=== PATIENT | female | born 1960 | race Caucasian/White ===

== ENCOUNTER → 2017-03-21 | Emergency (ER) | payer SELFPAY ==
[~2017-03-21] MED LIST: ASPIRIN 325 MG TABLET PO ONE; ASPIRIN 325 MG TABLET, ENT COATED PO SCH; ASPIRIN 81 MG TABLET, CHEWABLE ONE; ATORVASTATIN CALCIUM 40 MG TABLET PO SCH; DIAZEPAM 5 MG TABLET PO PRN; ENOXAPARIN SODIUM INJ 150 MG/1 ML DISP.SYRIN SUBCUT SCH; MAG HYDROX/AL HYDROX/SIMETH SUSP 30 ML UDCUP PO PRN; MORPHINE SULFATE 10 MG/ML INJ IV PRN; NITROGLYCERIN 0.4 MG/TAB 25 TAB/BOTTLE SL PRN; NITROGLYCERIN 2% OINTMENT 1 GM PACKET ONE; ONDANSETRON 4 MG TAB.RAPDIS PO PRN
--- NOTE | 2017-03-21 20:28 | ER Document Report ---
ED Medical Screen (RME) - General Chief Complaint: Chest Pain Stated Complaint: CHEST PAIN Time Seen by Provider: 03/21/17 20:27 Notes: Patient reports several days of chest pain abdominal pain and low back pain. TRAVEL OUTSIDE OF THE [place] IN LAST 30 DAYS: No Past Medical History - Social History Chew tobacco use (# tins/day): No Frequency of alcohol use: None Drug Abuse: None - Past Medical History Cardiac Medical History: Reports: Hx Hypertension Renal/ Medical History: Reports: Hx Kidney Stones. Denies: Hx Peritoneal Dialysis Past Surgical History: Reports: Hx Cardiac Catheterization Physical Exam - Vital signs Vitals: Temp Pulse Resp BP Pulse Ox 98.4 F 91 14 131/91 H 97 03/21/17 19:40 03/21/17 19:40 03/21/17 19:40 03/21/17 19:40 03/21/17 19:40 Course - Vital Signs Vital signs: Temp Pulse Resp BP Pulse Ox 98.4 F 91 14 131/91 H 97 03/21/17 19:40 03/21/17 19:40 03/21/17 19:40 03/21/17 19:40 03/21/17 19:40
--- NOTE | 2017-03-21 20:54 | RADIOLOGY REPORT (SQ) ---
EXAM DESCRIPTION: CHEST PA/LAT COMPLETED DATE/TIME: 03/21/2017 8:40 pm REASON FOR STUDY: cp COMPARISON: None. EXAM PARAMETERS: NUMBER OF VIEWS: two views TECHNIQUE: Digital Frontal and Lateral radiographic views of the chest acquired. RADIATION DOSE: NA LIMITATIONS: none FINDINGS: LUNGS AND PLEURA: No opacities, masses or pneumothorax. No pleural effusion. MEDIASTINUM AND HILAR STRUCTURES: No masses or contour abnormalities. HEART AND VASCULAR STRUCTURES: Heart normal size. No evidence for failure. BONES: No acute findings. HARDWARE: None in the chest. OTHER: No other significant finding. IMPRESSION: NO SIGNIFICANT RADIOGRAPHIC FINDING IN THE CHEST. TECHNICAL DOCUMENTATION: JOB ID: [id number] [employer]- All Rights Reserved
[2017-03-21 21:17] LABS: APPEARANCE,URINE SLIGHTLY-CLOUDY; BILIRUBIN,URINE NEGATIVE (NEGATIVE); COLOR,URINE YELLOW; GLUCOSE, URINE NEGATIVE (NEGATIVE); KETONES,URINE NEGATIVE (NEGATIVE); LEUKOCYTE ESTERASE,URINE TRACE (NEGATIVE); NITRITE,URINE NEGATIVE (NEGATIVE); PROTEIN,URINE NEGATIVE (NEGATIVE)
--- NOTE | 2017-03-21 23:02 | ER Document Report ---
ED General <CASTRO,BRIAN - Last Filed: 03/22/17 02:15> - General TRAVEL OUTSIDE OF THE [place].S[place] IN LAST 30 DAYS: No - HPI Patient complains to provider of: Chest heaviness Onset: Other - 3 Days ago Quality of pain: Pressure Severity: Moderate Associated symptoms: Shortness of breath Similar symptoms previously: No Recently seen / treated by doctor: No <PO HENRIQUEZ - Last Filed: 03/22/17 15:06> - General Chief Complaint: Chest Pain Stated Complaint: CHEST PAIN Time Seen by Provider: 03/21/17 20:27 - HPI Notes: 86-year-old female presents emergency department stating she has had 3 days of heavy centralized chest pain that is worse when she walks her 2 dogs. She states she moved from [place] to here in October and she has not been out of her meds since at least November. She tried to get some of them filled but she simply cannot afford them and she has no insurance. She states she did have a cardiac cath a few months ago and was told that she did have 2 blockages at approximately 55%. (PO HENRIQUEZ) - Related Data Allergies/Adverse Reactions: No Known Allergies Allergy (Unverified 03/21/17 21:00) Home Medications: Current Home Medications Cyclobenzaprine HCl [Flexeril 10 mg Tablet] 10 mg PO TIDP PRN 03/22/17 [History] Hydrochlorothiazide 25 mg PO DAILY 03/22/17 [History] Metoprolol Succinate 25 mg PO DAILY 03/22/17 [History] Pravastatin Sodium 20 mg PO DAILY 03/22/17 [History] Past Medical History - General Information source: Patient, Relative - Patient's daughter - Social History Smoking Status: Current Every Day Smoker Chew tobacco use (# tins/day): No Frequency of alcohol use: None Drug Abuse: None Lives with: Family Family History: CAD, Hypertension Patient has suicidal ideation: No Patient has homicidal ideation: No - Past Medical History Cardiac Medical History: Reports: Hx Hypertension Pulmonary Medical History: Reports: None Neurological Medical History: Reports: None Endocrine Medical History: Reports: None Renal/ Medical History: Reports: Hx Kidney Stones. Denies: Hx Peritoneal Dialysis Malignancy Medical History: Reports: None GI Medical History: Reports: None Musculoskeltal Medical History: Reports None Skin Medical History: Reports None Psychiatric Medical History: Reports: None Traumatic Medical History: Reports: None Infectious Medical History: Reports: None Past Surgical History: Reports: Hx Cardiac Catheterization - Immunizations Immunizations up to date: No <YARITZA HENRIQUEZRILETITIAE E - Last Filed: 03/22/17 15:06> Review of Systems - Review of Systems Constitutional: No symptoms reported EENT: No symptoms reported Cardiovascular: See HPI Respiratory: No symptoms reported Gastrointestinal: No symptoms reported Genitourinary: Dysuria Female Genitourinary: No symptoms reported Musculoskeletal: Back pain - Low back pain right side more than left Skin: No symptoms reported Hematologic/Lymphatic: No symptoms reported Neurological/Psychological: No symptoms reported <YARITZA HENRIQUEZRILENE E - Last Filed: 03/22/17 15:06> Physical Exam <ETTA CASTRO - Last Filed: 03/22/17 02:15> <MEG HENRIQUEZE E - Last Filed: 03/22/17 15:06> - Vital signs Vitals: Temp Pulse Resp BP Pulse Ox 98.4 F 91 14 131/91 H 97 03/21/17 19:40 03/21/17 19:40 03/21/17 19:40 03/21/17 19:40 03/21/17 19:40 - Notes Notes: PHYSICAL EXAMINATION: GENERAL: Well-appearing, well-nourished, obese and in no acute distress. HEAD: Atraumatic, normocephalic. EYES: Pupils equal round and reactive to light, extraocular movements intact, conjunctiva are normal. ENT: Nares patent, oropharynx clear without exudates. Moist mucous membranes. NECK: Normal range of motion, supple without lymphadenopathy LUNGS: Breath sounds clear to auscultation bilaterally and equal. No wheezes rales or rhonchi. HEART: Regular rate and rhythm without murmurs ABDOMEN: Soft, nontender, nondistended abdomen. No guarding, no rebound. No masses appreciated. Female : deferred Musculoskeletal: Normal range of motion, no pitting or edema. No cyanosis. NEUROLOGICAL: Cranial nerves grossly intact. Normal speech, normal gait. Normal sensory, motor exams PSYCH: Normal mood, normal affect. SKIN: Warm, Dry, normal turgor, no rashes or lesions noted. (SINAPIKERRILENE E) Course - Laboratory Result Diagrams: 03/21/17 23:26 03/21/17 23:26 <ETTA CASTRO - Last Filed: 03/22/17 02:15> - Laboratory Result Diagrams: 03/21/17 23:26 03/21/17 23:26 - Diagnostic Test Radiology reviewed: Image reviewed, Reports reviewed - EKG Interpretation by Fl EKG shows normal: Sinus rhythm - 88 Rate: Normal When compared to previous EKG there are: Previous EKG unavailable <PO HENRIQUEZ - Last Filed: 03/22/17 15:06> - Re-evaluation Re-evalutation: 03/22/17 01:46 Patient's troponin is negative. I did reevaluate the patient and she is not having chest pain. I will contact Dr. García for admission. (ETTA CASTRO) 03/21/17 23:52 I did talk to the patient she is willing to stay for observation as needed. I also talked to Dr. García pending a negative troponin she will admit the patient to observation (PO HENRIQUEZ) - Vital Signs Vital signs: Temp Pulse Resp BP Pulse Ox 98.4 F 91 14 145/95 H 99 03/21/17 19:40 03/21/17 19:40 03/22/17 04:00 03/22/17 04:00 03/22/17 04:00 - Laboratory Laboratory results interpreted by va: 03/21/17 03/21/17 20:50 23:26 RBC 5.67 H Hgb 16.7 H Hct 47.1 H Lymphocytes % 45.3 H Urine Urobilinogen 2.0 H Ur Leukocyte Esterase TRACE H - Diagnostic Test Radiology results interpreted by va: 03/21/17 22:59 Chest x-ray without any acute findings (PO HENRIQUEZ) Discharge - Discharge Admitting Provider: Hospitalist <ETTA CASTRO - Last Filed: 03/22/17 02:15> - Discharge Admitting Provider: Hospitalist Mehul garcía <PO HENRIQUEZ - Last Filed: 03/22/17 15:06> - Discharge Clinical Impression: Chest pain Qualifiers: Chest pain type: unspecified Qualified Code(s): R07.9 - Chest pain, unspecified Condition: Stable Disposition: ADMITTED OBSERVATION
[2017-03-21 23:42] LABS: ABSOLUTE BASOPHILS # (AUTO) 0.1 10^3/uL (0.0-0.2); ABSOLUTE EOSINOPHILS # (AUTO) 0.2 10^3/uL (0.0-0.6); ABSOLUTE LYMPHOCYTES (AUTO) 4.2 10^3/uL (0.5-4.7); ABSOLUTE MONOCYTES (AUTO) 0.6 10^3/uL (0.1-1.4); ABSOLUTE NEUT (AUTO) 4.1 10^3/uL (1.7-8.2); BASOPHILS % (AUTO) 1.2 % (0-2); EOSINOPHILS % (AUTO) 2.1 % (0-6); HEMATOCRIT 47.1 % (36.0-47.0); HEMOGLOBIN 16.7 g/dL (12.0-15.5); LYMPHOCYTES % (AUTO) 45.3 % (13-45); MEAN CORPUSCULAR HEMOGLOBIN 29.4 pg (27.0-33.4); MEAN CORPUSCULAR HGB CONC 35.3 g/dL (32.0-36.0); MEAN CORPUSCULAR VOLUME 83 fl (80-97); MONOCYTES % (AUTO) 6.7 % (3-13); PLATELET COUNT 293 10^3/uL (150-450); RED BLOOD COUNT 5.67 10^6/uL (3.72-5.28); RED CELL DISTRIBUTION WIDTH 13.2 % (11.5-14.0); SEGMENTED NEUTROPHILS % (AUTO) 44.7 % (42-78); TOTAL CELLS COUNTED % (AUTO) 100 %; WHITE BLOOD COUNT 9.2 10^3/uL (4.0-10.5)
[2017-03-21 23:56] LABS: ALANINE AMINOTRANSFERASE 23 U/L (9-52); ALBUMIN 4.5 g/dL (3.5-5.0); ALKALINE PHOSPHATASE 98 U/L (38-126); ANION GAP 11 (5-19); ASPARTATE AMINO TRANSFERASE 19 U/L (14-36); BILIRUBIN,DIRECT 0.3 mg/dL (0.0-0.4); BILIRUBIN,TOTAL 0.3 mg/dL (0.2-1.3); BLOOD UREA NITROGEN 20 mg/dL (7-20); CALCIUM 10.2 mg/dL (8.4-10.2); CARBON DIOXIDE 24 mmol/L (22-30); CHLORIDE 104 mmol/L (98-107); GLUCOSE 108 mg/dL (75-110); POTASSIUM 4.5 mmol/L (3.6-5.0); SODIUM 138.6 mmol/L (137-145); TOTAL PROTEIN 7.3 g/dL (6.3-8.2)
[2017-03-22 04:30] VITALS: BP 145/95
--- NOTE | 2017-03-22 06:39 | H&P/Discharge Summary ---
Discharge Summary Admission Date/PCP: 03/22/17 02:31 Discharge Date: 03/22/17 Resuscitation Status: Full Code - Discharge Diagnosis (1) Left against medical advice Is this a current diagnosis for this admission?: Yes (2) Chest pain Is this a current diagnosis for this admission?: Yes (3) Morbid obesity Is this a current diagnosis for this admission?: Yes (4) Tobacco abuse Is this a current diagnosis for this admission?: Yes (5) Noncompliance by refusing service Is this a current diagnosis for this admission?: Yes (6) Noncompliance w/medication treatment due to intermit use of medication Is this a current diagnosis for this admission?: Yes Home Medications: Cyclobenzaprine HCl [Flexeril 10 mg Tablet] 10 mg PO TIDP PRN 03/22/17 Hydrochlorothiazide 25 mg PO DAILY 03/22/17 Metoprolol Succinate 25 mg PO DAILY 03/22/17 Pravastatin Sodium 20 mg PO DAILY 03/22/17 Allergies/Adverse Reactions: No Known Allergies Allergy (Unverified 03/21/17 21:00) History of Present Illness Admission Date/PCP: 03/22/17 02:31 History of Present Illness: ILA ARIZA is a 56 year old female with past medical history of hypertension, hyperlipidemia and reported history of cardiac catheterization with reported "clogged arteries". Who presented to the emergency department with 4 days of chest heaviness. She reports that this started when she was walking. She reports it has been constant for the last 4 days. She reports is worse with movement and slightly improved with rest although it is never completely gone away. She was referred to the hospitalist service for admission and subsequently patient elected to leave AGAINST MEDICAL ADVICE prior to being admitted and evaluated. She was not given any medications and no follow-up appointments were made for this patient. Past Medical History Cardiac Medical History: Reports: Hypertension Pulmonary Medical History: Reports: None Neurological Medical History: Reports: None Endocrine Medical History: Reports: None Malignancy Medical History: Reports: None GI Medical History: Reports: None Musculoskeltal Medical History: Reports: None Skin Medical History: Reports: None Psychiatric Medical History: Reports: None Traumatic Medical History: Reports: None Infectious Medical History: Reports: None Past Surgical History Past Surgical History: Reports: Cardiac Catheterization Social History Lives with: Family Smoking Status: Current Every Day Smoker Family History Family History: CAD, Hypertension Parental Family History Reviewed: Yes Children Family History Reviewed: Yes Sibling(s) Family History Reviewed.: Yes Review of Systems ROS unobtainable: Other - Left AGAINST MEDICAL ADVICE Physical Exam Vital Signs: Temp Pulse Resp BP Pulse Ox 98.4 F 91 14 145/95 H 99 03/21/17 19:40 03/21/17 19:40 03/22/17 04:00 03/22/17 04:00 03/22/17 04:00 Results Impressions: Chest X-Ray 03/21/17 20:28 IMPRESSION: NO SIGNIFICANT RADIOGRAPHIC FINDING IN THE CHEST. Qualifiers PATEINT BEING DISCHARGED WITH ANY OF THE FOLLOWING DIAGNOSIS?: No Assessment & Plan - Time Time Spent: 30 to 50 Minutes
--- NOTE | 2017-03-22 09:46 | EKG REPORT ---
SEVERITY:- NORMAL ECG - SINUS RHYTHM : Confirmed by: Sav Moreno 22-Mar-2017 09:46:06
== END | disposition admitted as inpatient to this hospital (09) ==
LOC: ER 19:24 → UNDOADMOB 03-22 02:31 → EH 03-22 02:31
DX: R07.9 Chest pain, unspecified (principal); M54.5 Low back pain; I10 Essential (primary) hypertension; F17.200 Nicotine dependence, unspecified, uncomplicated; Z91.14 Patient's other noncompliance with medication regimen
CPT/HCPCS: 36415; 71046; 80053; 81001; 84484; 85025; 87086; 93005; 93010; 96372; 99285; J3490

== ENCOUNTER 2018-05-27 08:53 | Emergency (ER) | payer OTHER ==
[2018-05-27 09:07] VITALS: BP 183/96
[2018-05-27] MEDS ORDERED: PENICILLIN V POTASSIUM 500 MG TABLET PO ONE (09:35)
[2018-05-27] MEDS ORDERED: KETOROLAC TROMETHAMINE 10 MG TABLET PO ONE (09:35)
--- NOTE | 2018-05-27 09:41 | ER Document Report ---
ED General - General Chief Complaint: Toothache Stated Complaint: TOOTHACHE/FACIAL SWELLING Time Seen by Provider: 05/27/18 09:22 Mode of Arrival: Ambulatory Information source: Patient Notes: 57-year-old female with hypertension presents with left-sided facial swelling and left upper tooth pain. Patient states pain started 2 days prior to arrival and facial swelling started this morning. Patient denies any associated fever, nausea, vomiting, pain with eye movement. Patient has had multiple dental caries, dental fractures. Has not seen a dentist and some time but does report having dental insurance. TRAVEL OUTSIDE OF THE [place] IN LAST 30 DAYS: No - HPI Onset: Other Onset/Duration: Gradual, Persistent Quality of pain: Throbbing Severity: Mild Pain Level: 1 Associated symptoms: denies: Body/muscle aches, Chills, Fever, Nausea, Vomiting Exacerbated by: Denies Relieved by: Denies Similar symptoms previously: Yes Recently seen / treated by doctor: No - Related Data Allergies/Adverse Reactions: No Known Allergies Allergy (Verified 05/27/18 08:57) Past Medical History - General Information source: Patient, [facility] Records - Social History Smoking Status: Current Every Day Smoker Cigarette use (# per day): Yes - 10 Smoking Education Provided: Yes - Smoking cessation counseling was provided for 4 minutes at the bedside Frequency of alcohol use: None Drug Abuse: None Lives with: Family Family History: CAD, Hypertension Patient has suicidal ideation: No Patient has homicidal ideation: No - Past Medical History Cardiac Medical History: Reports: Hx Hypertension Renal/ Medical History: Reports: Hx Kidney Stones. Denies: Hx Peritoneal Dialysis Musculoskeletal Medical History: Reports Hx Arthritis, Reports Hx Musculoskeletal Trauma Past Surgical History: Reports: Hx Cardiac Catheterization - Immunizations Immunizations up to date: No Review of Systems - Review of Systems Notes: REVIEW OF SYSTEMS: CONSTITUTIONAL : Denies fever, chills, or sweats. Denies recent illness. Denies weight loss, recent hospitalizations. EENT: Denies visual changes, eye pain. Denies sore throat, oral lesions, difficulty swallowing. CARDIOVASCULAR: Denies chest pain. Denies palpitations. Denies lower extremity edema. RESPIRATORY: Denies cough. Denies shortness of breath, wheezing. GASTROINTESTINAL: Denies abdominal pain or distention. Denies nausea, vomiting, or diarrhea. Denies blood in vomitus, stools, or per rectum. Denies black, tarry stools. Denies constipation. GENITOURINARY: Denies difficulty urinating, painful urination, frequency, blood in urine, or vaginal discharge. MUSCULOSKELETAL: Denies back or neck pain or stiffness. Denies joint pain or swelling. SKIN: Denies rash, lesions or sores. HEMATOLOGIC : Denies easy bruising or bleeding. LYMPHATIC: Denies swollen glands. NEUROLOGICAL: Denies confusion or altered mental status. Denies loss of consciousness. Denies dizziness or lightheadedness. Denies headache. Denies weakness or paralysis. Denies problems difficulty with ambulation, slurred speech. Denies sensory loss, numbness, or tingling. Denies seizures. PSYCHIATRIC: Denies anxiety or stress. Denies depression, suicidal ideation, or homicidal ideation. Denies visual or auditory hallucinations. Physical Exam - Vital signs Vitals: Temp Pulse Resp BP Pulse Ox 98.0 F 81 20 183/96 H 100 05/27/18 09:05 05/27/18 09:05 05/27/18 09:05 05/27/18 09:05 05/27/18 09:05 - Notes Notes: PHYSICAL EXAMINATION: GENERAL: Well-appearing, well-nourished and in no acute distress. HEAD: Atraumatic, normocephalic. EYES: Pupils equal round and reactive to light, extraocular movements intact, conjunctiva are normal. ENT: Nares patent, oropharynx clear without exudates. Moist mucous membranes. Multiple dental caries. Patient has no teeth of the left upper mandible except for #15 which is fractured but without pulp exposure. No associated abscess. Mild facial swelling. No tenderness with palpation of the orbit. NECK: Normal range of motion, supple without lymphadenopathy LUNGS: Breath sounds clear to auscultation bilaterally and equal. No wheezes rales or rhonchi. HEART: Regular rate and rhythm without murmurs ABDOMEN: Soft, nontender, nondistended abdomen. No guarding, no rebound. No masses appreciated. Female : deferred Musculoskeletal: Normal range of motion, no pitting or edema. No cyanosis. NEUROLOGICAL: Cranial nerves grossly intact. Normal speech, normal gait. Normal sensory, motor exams PSYCH: Normal mood, normal affect. SKIN: Warm, Dry, normal turgor, no rashes or lesions noted. Course - Re-evaluation Re-evalutation: 05/27/18 09:41 Presentation is most consistent with likely an infected tooth. Airway is patent. Vitals within normal limits. Patient is able swallow without any difficulty. There is no significant facial swelling. No evidence of Caleb angina, apical abscess, or airway obstruction. Patient will be started on antibiotics. I've instructed to follow-up with dentistry as earliest ability for definitive management. At this time will discharge with return precautions and follow-up recommendations. Verbal discharge instructions given a the bedside and opportunity for questions given. Medication warnings reviewed. Patient is in agreement with this plan and has verbalized understanding of return precautions and the need for primary care follow-up in the next 24-72 hours. - Vital Signs Vital signs: Temp Pulse Resp BP Pulse Ox 98.0 F 81 20 183/96 H 100 05/27/18 09:05 05/27/18 09:05 05/27/18 09:05 05/27/18 09:05 05/27/18 09:05 Discharge - Discharge Clinical Impression: Pain, dental, Facial swelling Fracture, tooth Qualifiers: Encounter type: initial encounter Fracture type: closed Qualified Code(s): S02.5XXA - Fracture of tooth (traumatic), initial encounter for closed fracture Hypertension Qualifiers: Hypertension type: unspecified Qualified Code(s): I10 - Essential (primary) hypertension Condition: Good Disposition: HOME, SELF-CARE Instructions: Penicillin V K ([facility]), Toothache ([facility]) Additional Instructions: You have been seen for dental pain. It is very important that you follow-up with a dentist for definitive care. Please return if you develop fever greater than 101, worsening swelling in your face, vomiting, difficulty breathing or swallowing, or any other symptoms that are concerning to you. For pain you should take Toradol 10 mg every 6 hours as needed. There are some dental clinics at reduced rate. However are not in town and require travel. In [place]: The [facility] will be opening a free dental clinic. Phone: In [place]: 1.[facility] (60 miles away) [address] [facility] [place] [phone] [facility] For appointments, call on Mondays between the hours of 9 AM and noon. 2. [facility] (60 miles) [address] [facility] [phone] extension [phone] In [place]: [facility] (42 miles away) [address] [place] [address] In [place]: [facility] [place] [facility] (53 miles away) [address] [place] [address] In [facility] (173 miles away) [address] [place] [address] [facility] Prescriptions: Ketorolac Tromethamine [Toradol 10 mg Tablet] 10 mg PO Q6HP PRN #20 tablet PRN Reason: Penicillin V Potassium [Penicillin Vk 500 mg Tablet] 500 mg PO BID #20 tablet Forms: Smoking Cessation Education, Elevated Blood Pressure
== END 2018-05-27 09:52 | disposition home or self-care (01) ==
LOC: ER 08:53
DX: K08.9 Disorder of teeth and supporting structures, unspecified (principal); R22.0 Localized swelling, mass and lump, head; S02.5XXA Fracture of tooth (traumatic), initial encounter for closed fracture; X58.XXXA Exposure to other specified factors, initial encounter; F17.210 Nicotine dependence, cigarettes, uncomplicated; I10 Essential (primary) hypertension; Z87.442 Personal history of urinary calculi
CPT/HCPCS: 99282; J3490